=== PATIENT | female | born 1970 | race Caucasian/White ===

== ENCOUNTER 2016-09-07 17:57 | Emergency (ER) | payer BC ==
--- OUTSIDE RECORDS SUMMARY | 2016-09-07 18:30 | XMS REPORT | Continuity of Care Document ---
:1970 Author Organization [facility] ([facility] Address [place] [address] Phone [phone] Care Team Providers Name Role Phone Mc Leonardo Primary Care Provider [phone] Source Comments This disclosure is being made pursuant to the Care Everywhere program, applicable federal and state laws, and may not contain all informaitonavailable regarding this patient.[facility] ([facility]) Active Allergies and Adverse Reactions Allergen Noted Date Severity Reactions Comments Oxycodone-Acetaminophen 05/11/2015 Nausea & Vomiting Sulfa (Sulfonamide 05/11/2015 Cardiac Antibiotics) Arrhythmia,Rash Topiramate 05/11/2015 Headache Stomach pain and muscle pain. Current Medications Prescription Sig. Disp. Refills Start Date End Date Status estropipate 0.75 mg 11 05/04/2015 Active tablet montelukast 10 mg tablet 6 04/27/2015 Active polyethylene glycol 3350 6 05/04/2015 Active (MIRALAX) 17 gram/dose powder traMADol 50 mg tablet 0 04/11/2015 Active cetirizine (ZyrTEC) 10 mg Take 10 mg by mouth Active capsule daily calcium carbonate (600 mg Take 1 tablet by Active Ca) 1500 mg -vitamin D mouth daily 600mg/ 200 unit per tablet 800iu cholecalciferol (VITAMIN Take 1,000 Units by Active D3) 1,000 unit capsule mouth daily ascorbic acid (VITAMIN C) Take 1,000 mg by Active 1,000 mg tablet mouth daily multivitamin tablet Take 1 tablet by Active mouth daily Ginkgo Biloba 40 mg tab Take 120 mg by Active mouth albuterol 2.5 mg/3 mL Use 3 mL by Active inhalation solution inhalation every 4 hours as needed Active Problems Problem Noted Date Obstructive sleep apnea 07/15/2015 Snoring 07/15/2015 Hearing loss in right ear 05/11/2015 Headache(784.0) 05/10/2015 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 Social History Tobacco Use Types Packs/Day Years Used Date Never Smoker Smokeless Tobacco: Never Used Alcohol Use Drinks/Week oz/Week Comments No Last Filed Vital Signs Vital Sign Reading Time Taken Blood Pressure 113/65 07/15/2015 2:38 PM SET OFF PRESS OPERATOR Pulse 61 07/15/2015 2:38 PM SET OFF PRESS OPERATOR Temperature 37 C (98.6 F) 07/15/2015 2:38 PM SET OFF PRESS OPERATOR Respiratory Rate - - Height 1.676 m (5' 5.98") 07/15/2015 2:38 PM SET OFF PRESS OPERATOR Weight 109 kg (240 lb 4.8 oz) 07/15/2015 2:38 PM SET OFF PRESS OPERATOR Body Mass Index 38.8 07/15/2015 2:38 PM SET OFF PRESS OPERATOR Oxygen Saturation - - Plan of Care Health Maintenance Due Date Last Done Comments Hepatitis B Vaccine (1 of 3 - Primary Series) 1970 Tdap Vaccine 1982 Lipid Disorder Screening 1989 MMR Vaccine 1989 Td Vaccine 1989 Cervical Cancer Screening 2001 Mammogram 2011 Influenza Vaccine: Seasonal (#1) 01/09/2016 Results from Last 3 Months Not on file
[2016-09-07] MEDS ORDERED: COCAINE HCL 4 APPL BTL TP ONE ×2 (18:36→18:37)
--- NOTE | 2016-09-07 19:27 | ERNOTE ---
ENT HPI Presenting Symptoms: nosebleed Time Seen by Provider: 09/07/16 18:12 Source: patient, family Exam Limitations: no limitations - Immun/Allergies/Home Medications Immunizations: IMMUNIZATION HX Immunizations Up to Date Yes History of Influenza Vaccine Yes Hx Pneumococcal Vaccination No Allergies/Adverse Reactions: Allergies Allergy/AdvReac Type Severity Reaction Status Date / Time acetaminophen [From Percocet] Allergy Nausea Verified 09/07/16 18:04 oxycodone [From Percocet] Allergy Nausea Verified 09/07/16 18:04 Sulfa (Sulfonamide Allergy Hives Verified 09/07/16 18:04 Antibiotics) Home Medications: HOME MEDICATIONS Loratadine 10 mg PO DAILY 09/07/16 [Last Taken Unknown] - History of Present Illness Narrative: Patient states that she started to get her nosebleed just prior to arrival. Denies being on any blood thinner of any kind although she does use a CPAP at night to help her sleep. She also uses a neti pot to help with chronic sinus infections. Severity: Present: mild ENT Location: Present: nose Prearrival Treatment: Present: no prearrival treatment Modifying Factors - Improves: Reports: nothing Modifying Factors - Worsens: Reports: nothing Associated Symptoms - ENT: Reports: denies symptoms Review of Systems - Review of Systems Constitutional: Present: See HPI EYE: Present: no symptoms reported ENT: Present: other - left sided nose bleed Respiratory: Present: no symptoms reported Cardiology: Present: no symptoms reported Gastrointestinal/Abdominal: Present: no symptoms reported Genitourinary: Present: no symptoms reported Musculoskeletal: Present: no symptoms reported Skin: Present: no symptoms reported Neurological: Present: no symptoms reported Endocrine: Present: no symptoms reported Hematologic/Lymphatic: Present: no symptoms reported Psych: Present: no symptoms reported - Patient's Past Medical History Patient History - Medical: No pertinent hx, Other - sleep apnea Patient History - Cardiac/Respiratory: No pertinent hx Patient History - Cancer: No Hx of Cancer Patient History - Surgical Procedures: Cholecystectomy, Hysterectomy - Social History Living Situations: home Psych History: No pertinent hx Smoking Status: Never smoker Alcohol Use: none Drug Use: none - Immunizations Immunizations Up to Date: Yes Hx Pneumococcal Vaccination: No History of Influenza Vaccine: Yes Physical Exam - Physical Exam General Appearance: Present: wd/wn, alert, no apparent distress Eye Exam: Normal inspection: bilateral, PERRL: bilateral Ears, Nose, Throat: Present: normal pharynx, other - trace sided nose bleed Neck: Present: normal inspection, nontender Respiratory: Present: no respiratory distress, normal breath sounds, no accessory muscle use, chest nontender, lungs clear Cardiovascular/Chest: Present: regular rate, rhythm, no murmur, normal peripheral pulses Gastrointestinal/Abdominal: Present: normal bowel sounds, nontender, nondistended, soft, no organomegaly Rectal Exam: Present: deferred Back Exam: Present: normal inspection, normal range of motion Extremity Exam: Present: normal inspection, non-tender, no edema, normal range of motion Neurological Exam: Present: alert, oriented, normal mood/affect Skin Exam: Present: normal color, warm/dry Lymphatic Exam: Present: no adenopathy ED Progress - Vital Signs Patient's Vital Signs:: I have reviewed the patient's vital signs. Vital Signs: Vital Signs 09/07/16 09/07/16 18:00 19:07 Temperature 35.8 C L Pulse Rate 59 L 60 Respiratory 18 16 Rate Blood Pressure 161/86 146/76 O2 Sat by Pulse 100 98 Oximetry - Progress/Reassessment Chief Complaint: Nose Bleed Progress:: Improved Procedures Comments: Patient presented with a left-sided epistaxis 4% cocaine was applied and good blood bleeding control was established at that point. Silver nitrate was applied to the bleeding and patient was given STANDARD instructions for nosebleed. Plan - Plan Plan: Patient will refrain from using her CPAP for the next few nights. Patient will do what she can to keep the nose hydrated. She appears to have a low-grade sinus infection patient will use Bacitracin or Polysporin to the nasal septum. She agrees to follow-up with her family doctor for further treatment. Departure Clinical Impression: Anterior epistaxis - Departure Disposition: Home self-care Condition: Good Instructions: Nosebleed, [id number] Referrals: Mc Leonardo MD [Primary Care Provider] -
[2016-09-07 19:31] VITALS: BP 133/68
== END 2016-09-07 19:30 | disposition home or self-care (01) ==
LOC: ER 17:57
PROC: 0W3Q7ZZ Control Bleeding in Respiratory Tract, Via Natural or Artificial Opening (ICD-10-PCS; principal; 2016-09-07)
DX: R04.0 Epistaxis (principal)